=== PATIENT | male | born 1975 | race Caucasian/White ===

== ENCOUNTER 2017-09-07 04:13 | Emergency (ER) | payer SELFPAY ==
[~2017-09-07] VITALS: Ht 180.3 cm; Wt 101.2 kg
[2017-09-07 04:21] VITALS: Ht 180.3 cm; Wt 101.2 kg
[2017-09-07 06:11] VITALS: BP 123/80
== END 2017-09-07 06:11 | disposition home or self-care (01) ==
LOC: ED 04:13
DX: S16.1XXA Strain of muscle, fascia and tendon at neck level, initial encounter (principal); S30.0XXA Contusion of lower back and pelvis, initial encounter; Y99.8 Other external cause status; V43.62XA Car passenger injured in collision with other type car in traffic accident, initial encounter; Y93.I9 Activity, other involving external motion; Y92.89 Other specified places as the place of occurrence of the external cause
CPT/HCPCS: J1885